=== PATIENT | male | born 2000 | race Caucasian/White ===

== ENCOUNTER 2021-07-15 19:01 | Emergency (ER) | payer SELFPAY ==
[2021-07-15 20:45] VITALS: BP 121/78
== END 2021-07-16 01:00 | disposition left against medical advice (07) ==
LOC: ED 19:01
DX: Z13.30 Encounter for screening examination for mental health and behavioral disorders, unspecified (principal); Z53.21 Procedure and treatment not carried out due to patient leaving prior to being seen by health care provider

== ENCOUNTER 2021-09-16 15:25 | Emergency (ER) | payer SELFPAY ==
--- NOTE | 2021-09-16 17:03 | Emergency Department Report ---
ED General Adult HPI - General Chief complaint: Psych Stated complaint: PSYCH EVAL Time Seen by Provider: 09/16/21 16:39 Source: patient, EMS Mode of arrival: Stretcher Limitations: No Limitations - History of Present Illness Initial comments: The patient presents to the emergency department per request of his mother for psychiatric evaluation. The mother states that the patient has a history of bipolar and has never been prescribed medications for it. Patient denies homicidal suicidal ideations but is guarded with his answers. The patient appears to be preoccupied with other thoughts during the history and physical. He denies chest pain, shortness breath, or abdominal pain -: unknown Severity scale (0 -10): 0 Consistency: constant Improves with: none Worsens with: none Associated Symptoms: denies other symptoms Treatments Prior to Arrival: none - Related Data Allergies Allergy/AdvReac Type Severity Reaction Status Date / Time No Known Allergies Allergy Verified 09/16/21 15:37 ED Review of Systems ROS: Stated complaint: PSYCH EVAL Other details as noted in HPI Comment: All other systems reviewed and negative Constitutional: denies: chills, fever Eyes: denies: eye pain, eye discharge, vision change ENT: denies: ear pain, throat pain Respiratory: denies: cough, shortness of breath, wheezing Cardiovascular: denies: chest pain, palpitations Endocrine: no symptoms reported Gastrointestinal: denies: abdominal pain, nausea, diarrhea Genitourinary: denies: urgency, dysuria Musculoskeletal: denies: back pain, joint swelling, arthralgia Skin: denies: rash, lesions Neurological: denies: headache, weakness, paresthesias Psychiatric: denies: anxiety, depression Hematological/Lymphatic: denies: easy bleeding, easy bruising ED Past Medical Hx - Social History Smoking Status: Never Smoker Substance Use Type: Marijuana ED Physical Exam - General Limitations: No Limitations General appearance: alert, in no apparent distress - Head Head exam: Present: atraumatic, normocephalic - Eye Eye exam: Present: normal appearance - ENT ENT exam: Present: mucous membranes moist - Neck Neck exam: Present: normal inspection - Respiratory Respiratory exam: Present: normal lung sounds bilaterally. Absent: respiratory distress - Cardiovascular Cardiovascular Exam: Present: regular rate, normal rhythm. Absent: systolic murmur, diastolic murmur, rubs, gallop - GI/Abdominal GI/Abdominal exam: Present: soft, normal bowel sounds. Absent: distended, tenderness - Rectal Rectal exam: Present: deferred - Extremities Exam Extremities exam: Present: normal inspection - Back Exam Back exam: Present: normal inspection - Neurological Exam Neurological exam: Present: alert, oriented X3, CN II-XII intact. Absent: motor sensory deficit - Psychiatric Psychiatric exam: Present: flat affect - Skin Skin exam: Present: warm, dry, intact, normal color. Absent: rash ED Course Vital Signs 09/16/21 15:34 Temperature 98.8 F Pulse Rate 79 Respiratory 17 Rate Blood Pressure 111/87 [Left] O2 Sat by Pulse 99 Oximetry ED Medical Decision Making - Lab Data Result diagrams: 09/16/21 17:58 09/16/21 17:57 Lab Results 09/16/21 09/16/21 09/16/21 Range/Units 17:57 17:57 17:57 WBC (4.5-11.0) K/mm3 RBC (3.65-5.03) M/mm3 Hgb (11.8-15.2) gm/dl Hct (35.5-45.6) % MCV (84-94) fl MCH (28-32) pg MCHC (32-34) % RDW (13.2-15.2) % Plt Count (140-440) K/mm3 Lymph % (Auto) (13.4-35.0) % Eagle % (Auto) (0.0-7.3) % Eos % (Auto) (0.0-4.3) % Baso % (Auto) (0.0-1.8) % Lymph # (Auto) (1.2-5.4) K/mm3 Eagle # (Auto) (0.0-0.8) K/mm3 Eos # (Auto) (0.0-0.4) K/mm3 Baso # (Auto) (0.0-0.1) K/mm3 Seg Neutrophils % (40.0-70.0) % Seg Neutrophils # (1.8-7.7) K/mm3 Sodium 139 (137-145) mmol/L Potassium 3.8 (3.6-5.0) mmol/L Chloride 105.7 (98-107) mmol/L Carbon Dioxide 25 (22-30) mmol/L Anion Gap 12 mmol/L BUN 9 (9-20) mg/dL Creatinine 0.8 (0.8-1.3) mg/dL Estimated GFR > 60 ml/min BUN/Creatinine Ratio 11 % Glucose 81 (75-100) mg/dL Calcium 9.0 (8.4-10.2) mg/dL Total Bilirubin 0.40 (0.1-1.2) mg/dL AST 21 (5-40) units/L ALT 26 (7-56) units/L Alkaline Phosphatase 77 (35-129) units/L Total Protein 6.5 (6.3-8.2) g/dL Albumin 4.3 (3.9-5) g/dL Albumin/Globulin Ratio 2.0 % TSH 0.967 (0.270-4.200) mlU/mL Acetaminophen 5.0 L (10.0-30.0) ug/mL Plasma/Serum Alcohol (0-0.07) % 09/16/21 09/16/21 Range/Units 17:57 17:58 WBC 6.2 (4.5-11.0) K/mm3 RBC 4.92 (3.65-5.03) M/mm3 Hgb 14.9 (11.8-15.2) gm/dl Hct 43.7 (35.5-45.6) % MCV 89 (84-94) fl MCH 30 (28-32) pg MCHC 34 (32-34) % RDW 13.6 (13.2-15.2) % Plt Count 248 (140-440) K/mm3 Lymph % (Auto) 27.7 (13.4-35.0) % Eagle % (Auto) 5.4 (0.0-7.3) % Eos % (Auto) 0.8 (0.0-4.3) % Baso % (Auto) 1.1 (0.0-1.8) % Lymph # (Auto) 1.7 (1.2-5.4) K/mm3 Eagle # (Auto) 0.3 (0.0-0.8) K/mm3 Eos # (Auto) 0.0 (0.0-0.4) K/mm3 Baso # (Auto) 0.1 (0.0-0.1) K/mm3 Seg Neutrophils % 65.0 (40.0-70.0) % Seg Neutrophils # 4.0 (1.8-7.7) K/mm3 Sodium (137-145) mmol/L Potassium (3.6-5.0) mmol/L Chloride (98-107) mmol/L Carbon Dioxide (22-30) mmol/L Anion Gap mmol/L BUN (9-20) mg/dL Creatinine (0.8-1.3) mg/dL Estimated GFR ml/min BUN/Creatinine Ratio % Glucose (75-100) mg/dL Calcium (8.4-10.2) mg/dL Total Bilirubin (0.1-1.2) mg/dL AST (5-40) units/L ALT (7-56) units/L Alkaline Phosphatase (35-129) units/L Total Protein (6.3-8.2) g/dL Albumin (3.9-5) g/dL Albumin/Globulin Ratio % TSH (0.270-4.200) mlU/mL Acetaminophen (10.0-30.0) ug/mL Plasma/Serum Alcohol < 0.01 (0-0.07) % - Medical Decision Making Patient evaluated by mental health It was discovered that the patient has been having bizarre behavior and visual hallucinations. The patient is speaking to family members. Patient has also been aggressive to family and responding to internal stimuli. The patient's mother is concerned that the patient has not taken medications for his illness. Patient has a history of bipolar disease Awaiting COVID results for medical clearance Awaiting placement Critical care attestation.: If time is entered above; I have spent that time in minutes in the direct care of this critically ill patient, excluding procedure time. ED Disposition Clinical Impression: Aggressive behavior, Hallucinations, Bizarre behavior Disposition: [address] [place] [address] Is pt being admited?: No Does the pt Need Aspirin: No Condition: Stable
[2021-09-16 18:27] LABS: Basophils # (Auto) 0.1 K/mm3 (0.0-0.1); Basophils % (Auto) 1.1 % (0.0-1.8); Eosinophils % (Auto) 0.8 % (0.0-4.3); Hematocrit 43.7 % (35.5-45.6); Hemoglobin 14.9 gm/dl (11.8-15.2); Lymphocytes # (Auto) 1.7 K/mm3 (1.2-5.4); Lymphocytes % (Auto) 27.7 % (13.4-35.0); Mean Corpuscular HGB Conc 34 % (32-34); Mean Corpuscular Volume 89 fl (84-94); Monocytes # (Auto) 0.3 K/mm3 (0.0-0.8); Monocytes % (Auto) 5.4 % (0.0-7.3); Platelet Count 248 K/mm3 (140-440); Red Blood Count 4.92 M/mm3 (3.65-5.03); Red Cell Distribution Width 13.6 % (13.2-15.2)
[2021-09-16 19:00] LABS: Alanine Aminotransferase 26 units/L (7-56); Albumin 4.3 g/dL (3.9-5); BUN/Creatinine Ratio 11; Blood Urea Nitrogen 9 mg/dL (9-20); Hemolysis Index 2
--- NOTE | 2021-09-17 12:59 | Consultation ---
History of Present Illness - Reason for Consult Consult date: 09/16/21 Reason for consult: MHE - Chief Complaint Chief complaint: HPI 21 year old was seen today in the ER. Patient states that he was brought in by ambulance but doesn't know why but he thinks " I have a cold". Patient denies any SI/HI but admits to hearing voices like "sounds, like conversations" but don't know what they are saying. Patient was guarded during this interview. Patient has a past psychiatric dx of bipolar, but was never started on any medications.. Psych will follow at this time and recommend inpatient psychiatric evaluation. PAST PSYCHIATRIC HISTORY: Diagnoses: Bipolar Suicide attempts or Self-harm behavior: denies Prior psychiatric hospitalizations: Unable to assess Substance Abuse history: Marijuana Previous psychiatric medications tried: None Outpatient treatment: PAST MEDICAL HISTORY: Family Psychiatric History None reported or documented SOCIAL HISTORY Marital Status: Single Living Arrangements: With family Employment Status: unemployed Access to guns/weapons: Denies Education: 10th Grade History of Abuse: Unable to assess Legal History: Unable to assess REVIEW OF SYSTEMS ROS cannot be reliably obtained from the patient due to her confusion and somnolence. Constitutional: Negative for weight loss ENT: Negative for stridor Respiratory: Negative for cough or hemoptysis MENTAL STATUS General Appearance and Behavior: age appropriate, good eye contact, cooperative with questioning and polite Cooperation: Cooperative Psychomotor Behavior: within normal limits Mood: OK Affect and affective range: Congruent with stated mood Thought Process: poor Thought Content: poor Speech: Normal volume and Regular rate and rhythm Intellectual Functioning Average Suicidal Ideation: Denies SI Homicidal Ideation: Denies HI Impulse Control: intact Insight and Judgment: Poor Memory:Poor Attention: Poor Orientation: alert RECOMMENDATIONS MEDICAL: Per primary team DELIRIUM PRECAUTIONS: Please re-orient patient frequently, keep lights on during the day, and minimize benzodiazepines and opiates as these medications could worsen patient's confusion. FIRST AID INSTRUCTOR: Defer to primary team DISPOSITION: Per primary team, acute inpatient psychiatric hospitalization when medically stable LEGAL STATUS: 1013 FOLLOW-UP: Will follow The patient agreed on the treatment plan, understood the risk, benefit, alternative treatment, potential consequence of no treatment, and gave informed consent. I have reviewed this treatment plan, including potential risks and benefits of medications, with the patient and/or family members and relevant hospital providers. Please contact with any questions and/or concerns. Medications and Allergies Allergies Allergy/AdvReac Type Severity Reaction Status Date / Time No Known Allergies Allergy Verified 09/16/21 15:37 Mental Status Exam - Vital signs Last Vital Signs Temp 97.9 F 09/17/21 09:06 Pulse 68 09/17/21 09:06 Resp 20 09/17/21 09:06 BP 116/67 09/17/21 09:06 Pulse Ox 100 09/17/21 09:06 Results Result Diagrams: 09/16/21 17:58 09/16/21 17:57 Abnormal lab results 09/16/21 Range/Units 17:57 Acetaminophen 5.0 L (10.0-30.0) ug/mL All other labs normal.
--- NOTE | 2021-09-18 12:19 | Progress Note ---
Subjective - Reason for Consult Consult date: 09/18/21 Reason for consult: off meds - Chief Complaint Chief complaint: The patient was seen today. He says he has a history of bipolar and been off his meds. He says "I don't have to be." The patient appears to be responding to internal stimuli, although he denies hallucinations. He appears preoccupied, is looking around and mumbling at times. When asking about suicidal thoughts, he is slow to respond but then denies. The patient denies homicidal thoughts. He then mumbles beneath his breathe, "play the game." Will start the patient on medications and recommend acute psychiatric medication to stabilize the patient. REVIEW OF SYSTEMS Constitutional: Negative for weight loss ENT: Negative for stridor Respiratory: Negative for cough or hemoptysis All other systems reviewed and are negative MENTAL STATUS General Appearance and Behavior: age appropriate, good eye contact, cooperative with questioning and polite Cooperation: Cooperative Psychomotor Behavior: within normal limits Mood: okay Affect and affective range: Congruent with stated mood Thought Process: goal directed Thought Content: None Speech: Normal volume and Regular rate and rhythm Suicidal Ideation: Denies SI Homicidal Ideation: Denies HI Hallucinations: denies Impulse Control: intact Insight and Judgment: Limited Memory: Normal Attention: Normal Orientation: alert and oriented Assessment Bipolar Disorder Treatment Plan 1013 Olanzapine 5mg po daily Trazodone 50mg po qhs Medical: Per primary Disposition: recommend acute psychiatric inpatient treatment Will follow. Thanks Case staffed with Dr. Cisneros Mental Status Exam - Vital signs Last Vital Signs Temp 98.4 F 09/18/21 02:21 Pulse 59 L 09/18/21 02:21 Resp 16 09/18/21 02:21 BP 116/71 09/18/21 02:21 Pulse Ox 100 09/18/21 05:00
--- NOTE | 2021-09-18 18:56 | Emergency Department Report ---
Blank Doc - Documentation Documentation: Chart reviewed 21-year-old male continues to be on 1013 awaiting inpatient treatment. Tolerating p.o. meds. Vital signs normal
[2021-09-18] MEDS ORDERED: traZODone 50 MG TAB PO SCH (22:00)
[2021-09-18 22:13] VITALS: BP 127/87
[2021-09-19 06:41] LABS: Mucus,Urine FEW /HPF
[2021-09-19 06:44] LABS: Amphetamine Screen,Urine Negative; Benzodiazepines Screen,Urine Negative; Cocaine Screen,Urine Negative; Methadone Screen,Urine Negative; Opiate Screen,Urine Negative
[2021-09-19 06:56] LABS: Bilirubin,Urine Negative (Negative); Blood,Urine Negative (Negative); Color,Urine Yellow (Yellow); Protein,Urine <15 mg/dL mg/dL (Negative); Urobilinogen,Urine < 2.0 mg/dL (<2.0)
[2021-09-19 07:03] LABS: Cannabinoid Screen,Urine Positive
--- NOTE | 2021-09-19 10:00 | Progress Note ---
Subjective - Reason for Consult Consult date: 09/19/21 Reason for consult: hallucinations - Chief Complaint Chief complaint: The patient was seen today. He is more talkative today. He is calm and cooperative. The patient says he and his mother doesn't get along and states that's why he's here. He says "I get along with my dad." He his mother thought he should have an evaluation. The patient denies SI/HI or hallucinations of any kind. REVIEW OF SYSTEMS Constitutional: Negative for weight loss ENT: Negative for stridor Respiratory: Negative for cough or hemoptysis All other systems reviewed and are negative MENTAL STATUS General Appearance and Behavior: age appropriate, good eye contact, cooperative with questioning and polite Cooperation: Cooperative Psychomotor Behavior: within normal limits Mood: good Affect and affective range: Congruent with stated mood Thought Process: goal directed Thought Content: None Speech: Normal volume and Regular rate and rhythm Suicidal Ideation: Denies SI Homicidal Ideation: Denies HI Hallucinations: denies Impulse Control: intact Insight and Judgment: Limited Memory: Normal Attention: Normal Orientation: alert and oriented Assessment Bipolar Disorder Treatment Plan d/c 1013 Olanzapine 5mg po daily Trazodone 50mg po qhs Medical: Per primary Disposition: Do not recommend acute psychiatric inpatient treatment The patient to follow up with outpatient psych in 7 to 14 days upon discharge The director mission to give the patient all necessary outpatient resources Will sign off. Thanks Case staffed with Dr. Cisneros Mental Status Exam - Vital signs Last Vital Signs Temp 98.6 F 09/18/21 22:12 Pulse 56 L 09/18/21 22:12 Resp 17 09/18/21 22:12 BP 127/87 09/18/21 22:12 Pulse Ox 99 09/18/21 22:12
== END 2021-09-19 10:54 | disposition home or self-care (01) ==
LOC: EEVIPCON 15:25 → ED 15:25
DX: R46.1 Bizarre personal appearance (principal); R44.3 Hallucinations, unspecified; Z20.822 Contact with and (suspected) exposure to COVID-19
CPT/HCPCS: 80053; 80307; 81001; 84443; 85025; 87086; 99284; U0003; 80320; G0480